=== PATIENT | male | born 1975 | race Caucasian/White ===

== ENCOUNTER 2018-05-13 16:47 | Inpatient (IN) | payer OTHER ==
[~2018-05-13] VITALS: Ht 185.4 cm; Wt 102.6 kg
[2018-05-13 17:17] LABS: ABSOLUTE BASOPHIL COUNT 0 /CUMM (0.0-0.2); ABSOLUTE EOSINOPHIL COUNT 0 /CUMM (0.0-0.7); ABSOLUTE GRANULOCYTE CT 9.4 /CUMM (1.4-6.5); ABSOLUTE LYMPH COUNT 1.5 /CUMM (1.2-3.4); ABSOLUTE MONOCYTE COUNT 0.6 /CUMM (0.10-0.60); BASOPHIL % 0.3 % (0.0-2.0); EOSINOPHIL % 0.1 % (0-5); GRANULOCYTE % 80.8 % (42.2-75.2); HEMATOCRIT 47.9 % (42-52); MEAN CORPUSCULAR HGB 30.1 PG (27.0-31.0); MEAN CORPUSCULAR HGB CONC 34.4 G/DL (33.0-37.0); MEAN CORPUSCULAR VOLUME 87.6 FL (80.0-94.0); MEAN PLATELET VOLUME 8.4 FL (7.4-10.4); PLATELET COUNT 276 /CUMM (130-400); RBC DISTRIBUTION WIDTH 13.2 % (11.5-14.5); RED BLOOD CELL CT 5.47 /CUMM (4.70-6.10); WHITE BLOOD CELL COUNT 11.6 /CUMM (4.8-10.8)
--- NOTE | 2018-05-13 18:52 | ED PSYCHIATRIC COMPLAINT ---
See Addendum History of Present Illness General Chief Complaint: Psychiatric Related Complaint Stated Complaint: +SI,HEROIN ABUSE,ETOH ABUSE Source: patient Exam Limitations: no limitations Vital Signs & Intake/Output Vital Signs & Intake/Output Vital Signs Date Time Temp Pulse Resp B/P B/P Pulse O2 O2 Flow FiO2 Mean Ox Delivery Rate 05/15 1025 81 18 133/78 97 Room Air 05/15 0613 97.3 69 20 148/100 05/15 0612 97.3 69 20 148/100 05/15 0610 97.3 69 20 148/100 05/15 0051 99.6 75 18 160/110 05/14 2243 75 18 160/110 98 Room Air 05/14 2105 99.6 70 20 160/80 97 Room Air 05/14 2030 160/80 05/14 1510 59 18 144/92 98 Room Air 05/14 1509 59 18 144/92 05/14 1311 60 18 172/102 100 Room Air 05/14 1305 60 05/14 1043 98.0 74 18 178/108 Allergies Coded Allergies: NO KNOWN ALLERGIES (09/04/12) Reconcile Medications No Known Home Medications Triage Note: TRIAGE: 43 Y/O MALE PRESENTS WITH +SUICIDALITY. DENIES HOMICIDALITY. PATIENT REPORTS USES HEROIN DAILY (SNIFFING). USES 3-4 BAGS ON A DAILY BASIS. DRINKING HEAVILY RECENTLY. LOST JOB 9 MONTHS AGO, STOPPED TAKING DEPRESSION MEDICATIONS. Triage Nurses Notes Reviewed? yes Onset: Abrupt Duration: week(s): Timing: recent history HPI: 05/13/18 8:25 PM 43-year-old male presents to the emergency department for depression with suicidal ideation. According to the patient he lost his job 8 months ago. He is been unable take his benzodiazepine and antidepressent medications. He is having suicidal ideation with severe depression. (John Bartholomew DO) Past History Travel History Traveled to [place] past 21 day Yes Medical History Any Pertinent Medical History? see below for history Neurological: NONE EENT: NONE Cardiovascular: NONE Respiratory: NONE Gastrointestinal: NONE Hepatic: NONE Renal: NONE Musculoskeletal: NONE Psychiatric: anxiety, depression Endocrine: NONE Blood Disorders: NONE Cancer(s): NONE Surgical History Surgical History: non-contributory Psychosocial History What is your primary language German Tobacco Use: Quit >30 days ago ETOH Use: alcoholic Illicit Drug Use: cocaine, heroin Family History Hx Contributory? No (John Bartholomew DO) Review of Systems Review of Systems Constitutional: Denies: fever. EENTM: Denies: visual changes. Respiratory: Denies: short of breath. Cardiovascular: Denies: chest pain. GI: Denies: abdominal pain. Genitourinary: Reports: no symptoms. Musculoskeletal: Reports: no symptoms. Skin: Reports: no symptoms. Neurological/Psychological: Reports: no symptoms. Hematologic/Endocrine: Reports: no symptoms. Immunologic/Allergic: Reports: no symptoms. (John Bartholomew DO) Physical Exam Physical Exam General Appearance: well developed/nourished, alert, awake, anxious, moderate distress Head: atraumatic Eyes: Bilateral: PERRL. Ears, Nose, Throat: normal pharynx, normal ENT inspection Neck: normal inspection, supple Respiratory: normal breath sounds, chest non-tender Cardiovascular: regular rate/rhythm Gastrointestinal: soft, non-tender Extremities: normal range of motion, evidence of injury Neurological/Psychiatric: no motor/sensory deficits, awake, agitated Appearance/Memory/Insight: appropriate appearance Behavoir/Eye Contact/Speech: avoids eye contact, cooperative Thoughts/Hallucinations: normal thought pattern SAD PERSONS SAD PERSONS Response Value Male Sex? yes 1 Age <19 or >45 years? yes 1 Depression/Hopelessness? yes 2 Previous Attempts/Psych Care yes 1 Rational Thinking Loss? yes 2 Single//? yes 1 Social Support? has no support 1 Total 9 SAD PERSONS Done? yes (John Bartholomew DO) Progress Differential Diagnosis: drug intoxication, drug overdose, drug withdrawal, DEPRESSION Plan of Care: Orders Procedure Date/time Status Admit to inpatient psych 05/15 1034 Active Continuous Observation Monitor 05/15 0139 Active Current Medications Sig/Hill Start time Last Medication Dose Stop Time Status Admin Clonidine 0.1 MG Q6 05/14 1800 AC 05/15 (Catapres) 0610 Lorazepam 1 MG Q6 05/14 1800 AC 05/15 (Ativan) 0610 Lorazepam 2 MG Q4 HRS NEEDED PRN 05/14 1215 AC (Ativan) Lorazepam 1 MG Q4 HRS NEEDED PRN 05/14 1215 AC (Ativan) Initial ED EKG: none (John Bartholomew DO) Comments: 05/14/2018 7:21:48 AM Patient signed out to Dr. Bartholomew at shift change agent after an uneventful emergency department stay overnight. 05/15/2018 10:33:43 AM patient signed out to me by Dr. Maher at shift change agent. Patient has been evaluated by the crisis condition and will be admitted to inpatient psychiatry. (Kirstie MAGAÑA,John Raymundo) Departure Departure Disposition: STILL A PATIENT Condition: Stable Clinical Impression Primary Impression: Depression Referrals: Martin Morrow MD (PCP/Family) Departure Forms: Customer Survey General Discharge Information Prescriptions: Current Visit Scripts No Known Home Medications (John Bartholomew DO) Departure Comments - - Pt to be signed out to dr. benavidez, 05/15/18, 7am, crises eval/dispo (Gunnar MAGAÑA,Chase Valadez) Departure Departure Disposition: STILL A PATIENT Condition: Stable Clinical Impression Primary Impression: Depression Referrals: Martin Morrow MD (PCP/Family) Departure Forms: Customer Survey General Discharge Information Prescriptions: Current Visit Scripts No Known Home Medications (John Bartholomew DO)
--- NOTE | 2018-05-13 21:27 | ED PSYCH CRISIS CONSULTATION ---
See Addendum Crisis Consult Basic Assessment Date of Consult: 05/13/18 Responsible Person/Accompanied By: Self Insurance Authorization: Insurance #1: Insurance name: SELF-PAY Phone number: Policy number: Group number: Authorization number: ED Provider: Patient's ED Provider: John Bartholomew DO Primary Care Physician: Patient's PCP: Martin Morrow MD PCP's Current Psychiatrist: none Chief Complaint: Psychiatric Related Complaint Patient's Quote: "If I had a gun last night, I probablywould have been ." Present Illness: Pt. is a 43 year old male presenting to the ED with "thoughts of hurting myself or taking my life" for the past two nights. Pt. reports that he has thought of a plan (a gun), but later said, he probably would not do it. Pt. denies any past suicide attempts, but reports that the thoughts are frequent. Pt. reports that he lost his job in July 2017 and with that, also lost his insurance and could no longer pay for his psychiatric medications - Prozac and Xanax. Pt. said that he also relapsed on cocaine, heroin and alcohol. Pt. reports that he has been using cocaine everyday for the last 8 months, about $100 a day. Pt. reports that he has been using heroin everyday for the last 5 months, 3 to 5 bags a day. Pt. reports that he has been using alcohol everyday for the past 8 months, a half a pint and a 6-pack a day. Pt. reports decreased sleep, appetite , energy level concentration and interest. Pt. reports that he has never had any inpatient substance abuse tx and that he had stopped using cocaine and heroin in the past on his own. Pt. also denies any psychiatric hospitalizations. Pt. reports that he has done therapy throughout his life, but last saw a therapist about two years ago. Patient's Address: [address] [place] [address] Other Phone Number: Who Do You Live With? Patient/Self Family/Informants Interviewed: n/a Allergies - Coded Allergies: NO KNOWN ALLERGIES (09/04/12) Current Medications - No Known Home Medications Laboratory Results: Laboratory Tests 05/13/189: Urine Opiates Screen > 4000.00 H, Methadone Screen < 40, Barbiturate Screen < 60, Ur Phencyclidine Scrn < 6.00, Amphetamines Screen < 100, U Benzodiazepines Scrn < 85, Urine Cocaine Screen > 1000 H, Urine Cannabis Screen > 80.00 H 05/13/18 1711: Anion Gap 11, Estimated GFR > 60, BUN/Creatinine Ratio 13.3, Glucose 104 H, Calcium 9.7, Total Bilirubin 0.6, AST 18, ALT 23, Alkaline Phosphatase 57, Total Protein 7.6, Albumin 4.6, Globulin 3.0, Albumin/Globulin Ratio 1.5, CBC w Diff NO MAN DIFF REQ, RBC 5.47, MCV 87.6, MCH 30.1, MCHC 34.4, RDW 13.2, MPV 8.4, Gran % 80.8 H, Lymphocytes % 13.2 L, Monocytes % 5.6, Eosinophils % 0.1, Basophils % 0.3, Absolute Granulocytes 9.4 H, Absolute Lymphocytes 1.5, Absolute Monocytes 0.6, Absolute Eosinophils 0, Absolute Basophils 0, Serum Alcohol < 10.0 (Bridget White LCSW) Addendum Addendum 05/14/18 Crisis Reassessment: Pt presents alert, oriented, calm and cooperative with goal directed speech. Pt continues to report SI. The pt denies HI, AH and VH. The pt stated that until he started abusing drugs he lived a good life and is now fine with dying. The pt reports he would not miss anything if he and is fine with not waking up. The pt stated he does not have access to guns. The pt reports no hope for his future due to spending his entire longterm savings of $40,000 over the past 4 months. The pt stated he was reckless and impulsive spending his entire longterm savings on "heroin, cocaine, food and sex." The pt also reports that July 2017 he lost his job of 26 years and has not worked since that time. The pt reports prior to fracturing his spine in February 2011 his only drug use was smoking marijuana. The reports back surgery in July 2011 and becoming addicted to pain medication. The pt reports he has never been prescribed Methadone or Suboxone. Addressed the plan for hospitalization and ongoing bed search due to no beds available at [facility]. The pt stated he is in agreement with this plan. (Sudeep MEDEIROS,Mathieu Ding) Past History Past Medical History Neurological: NONE EENT: NONE Cardiovascular: NONE Respiratory: NONE Gastrointestinal: NONE Hepatic: NONE Renal: NONE Musculoskeletal: NONE Psychiatric: anxiety, depression Endocrine: NONE Blood Disorders: NONE Cancer(s): NONE Past Surgical History Surgical History: non-contributory Psychosocial History Strengths/Capabilities: good family support, reports he is strong-willed Physical Limitations (Interventions): "bad back" Psychiatric Treatment History Psych Treatment Psychiatric Treatment Yes Inpatient Treatment No Outpatient Treatment Yes [facility] of [facility] Reason for Treatment depression, anxiety Dates of Treatment 2 years ago Response to Treatment therapist moved out of state Diagnosis by History: Depression, Anxiety Substance Use/Abuse History Drug Use/Abuse 1 Substances Used/Abused Yes Substance Used/Abused Alcohol First Use unk Last Used three days ago How much used/taken half pint and a six-pack How often everyday For how long last 8 months Route of use oral Drug Use/Abuse 2 Substances Used/Abused Yes Substance Used/Abused Cocaine First Use unk Last Used this morning How much used/taken $100 worth How often daily For how long 8 months Route of use inhalation Drug Use/Abuse 3 Substances Used/Abused Yes Substance Used/Abused Heroin First Use 2010 Last Used this morning How much used/taken 3 to 5 bags How often daily For how long past 5 months Route of use inhalation Substance Abuse Treatment Substance Abuse Treatment Past Substance Abuse [place] No Comments: n/a (Bridget White LCSW) Current Mental Status Mental Status Orientation: Person, Place, Situation Affect: WNL Speech: WNL Neuro-vegetative: Anhedonia, Appetite Decreased, Concentration Poor, Energy Decreased, Loss of Interest, Sleep Disturbance Appearance Appearance- Dress/Hygiene: WNL Behaviors Thought Process: WNL Thought Content: WNL Memory: WNL Insight: Fair SI/HI Risk Assessment Past Suicidal Ideation/Attempts Yes (thoughts only) Current Suicidal Ideation/Att Yes (thoughts with a plan (gun)) Past Homicidal Ideation/Att: No Current Homicidal Ideation/Attempts No Degree of Intent: Plan (gun) Danger To: Self Gravely Disabled: none Risk Factors: chronic/serious med cond., high anxiety/distress, substance abuse, poor impulse control, lives alone, male Lethality Ratin PTSD Checklist PTSD Done? patient declined ED Management Sitter: Yes Restraints: No (Bridget White LCSW) DSM5/PS Stressors/Medical Prob Diagnosis' (DSM 5, Stressors, Medical): F32.9 - Unspecified depression F41.9 - Unspecified anxiety F11.20 - Alcohol Use D/O, severe F14.20 - Cocaine Use D/O, severe F11.20 - Opioid Use D/O, severe Stressors - unemployed, no insurance, financial Medical - chronic back pain Current GAF: 24 Comments: Pt. reports current suicidal thoughts with plan. Pt. is also unemployed, off his psychiatric medications and struggling financially. (Bridget White LCSW) Departure Disposition Psych Medical Clearance Date: 05/13/18 Medically Cleared at: 2019 Time Started: 2019 Time Ended: 2104 Psychiatrist Consulted: Sylvain Amaral MD Date Disposition Established: 05/13/18 Time Disposition Established: 2104 Plan for Disposition - Modality: Bed Search Facility: [facility] Contact: n/a Telephone: n/a Rationale for Disposition: Pt. reports current suicidal thoughts and also for the past two nights, daily cocaine, heroin and alcohol use. Pt. has also been off of his psychiatric medications for the past 8 months. Pt. is at current risk of harm to himself. Type of IP Admission: Voluntary Additional Instructions: n/a Referrals Martin Morrow MD (PCP/Family) (Bridget White LCSW)
[2018-05-14 00:11] VITALS: BP 127/79
[2018-05-14 02:11] VITALS: BP 136/94
[2018-05-14 04:17] VITALS: BP 128/98
[2018-05-14 06:30] VITALS: BP 130/78
[2018-05-14 10:43] VITALS: BP 178/108
--- NOTE | 2018-05-14 12:08 | ED PSYCHIATRIST/APRN CONSULT ---
Psychiatrist/EARRINGS FABRICATOR ED Consult Assessment and Plan: Psychiatric consultation Date of consultation: 05/14/2018 and Reason for consultation: "Thoughts of hurting myself" History of present illness: The patient is a 43-year-old white male who presented to the emergency Department with "thoughts of hurting myself or taking my own life" The patient reported that his been having these thoughts for the past 2 nights. According to the shelf stocker's evaluation the patient has had thought of a plan at one point recently) shooting self with a gun), but later he recanted that and he reported that he probably would not do it. Patient denied previous suicide attempts. Patient lost his job in July 2017. He lost his insurance after that. Has been off his medications for a few months now. Has been using cocaine and heroin and alcohol daily. Past psychiatric history The patient denied any previous psychiatric hospitalizations. He reported that he has done therapy in the past. But he has not seen a therapist and to use time. Mental status examination: The patient looked uncomfortable and seems to be in withdrawal both from heroin as well as alcohol. He was lying in bed topless. He showed increased psychomotor activity and fidgetiness consistent with withdrawal from heroin and alcohol. Some muscle twitching noted, no tremors. His speech was normal, not pressured. Despite his discomfort he was polite and cooperative. He was alert and oriented to place and person and partially to time. He described his mood as "miserable ", also consistent with withdrawals. He also reported high anxiety. He denied thoughts of suicide today. He denied thoughts of violence or homicide. He was coherent without evidence of thought disorder. He denied paranoia and did not have any delusions during the interview. He denied hallucinations and did not seem to be responding to internal stimuli. All things considered, he had reasonable attention and concentration and no evidence of memory deficits. He acknowledged his addiction and the need for treatment. His judgment seems to be directly related to his sobriety. Seems to be of average intelligence. He showed good impulse control during the interview. Assessment 43-year-old white male who presented with thoughts of suicide in the context of relapsing to daily heroin cocaine and alcohol use for the past 8 months. He reported thoughts of suicide yesterday but not today. There was no evidence of psychosis. But the patient is definitely withdrawing from heroin and alcohol. Diagnostic impression: F32.9 - Unspecified depression (most likely substance-induced mood disorder with onset of symptoms during withdrawal) F41.9 - Unspecified anxiety (most likely substance induced anxiety disorder with onset of symptoms during withdrawal). F11.20 - Alcohol Use D/O, severe F14.20 - Cocaine Use D/O, severe F11.20 - Opioid Use D/O, severe Unemployment, poverty, and chronic back pain Recommendations: Ativan 2 mg times once and Ativan as needed for alcohol withdrawal symptoms and signs Clonidine 0.2 mg times once and clonidine 0.1 mg every 6 hours Ativan 1 mg every 6 hours Heroin detoxification Alcohol detoxification protocol every 2 hours Patient in need of inpatient psychiatric admission because of the thoughts of suicide
[2018-05-14 15:09] VITALS: BP 144/92
[2018-05-15 06:12] VITALS: BP 148/100
--- NOTE | 2018-05-15 09:39 | IP CRISIS DIAG ASSESS PSYCH ---
See Addendum Diagnostic Assessment Basic Assessment Insurance Authorization: Insurance #1: Insurance name: SELF-PAY Phone number: Policy number: Group number: Authorization number: Primary Care Physician: Patient's PCP: Martin Morrow MD PCP's Patient's Quote: "If I had a gun last night, I probablywould have been ." Present Illness: SW met with the patient for the morning reassessment. The patient presents with depressed mood and flat affect. He rates his depression a 4 out of 10 and anxiety a 7 out of 10, 10 being the most severe. The patient states that he has been feeling helpless and hopeless, with decreased sleep, appetite, concentration and motivation. He reports that he has been feeling depressed since about 8 months ago, when he lost his job. He states that he relapsed on Cocaine the day he lost his job, after 7 years clean. In addition to using Cocaine, he has been using Heroin. He states that he worked in [employer] for a [employer] for 26 years and he believed that he was wrongfully terminated after new management came in. He states that he never had any mental health symptoms before and that he has never had any treatment. He reports that his suicidal ideations began 10-12 days ago and states that if he had a gun, he would have killed himself. He denies any suicidal ideations while in the ED, however does not believe that he can remain safe, if he is discharged. He states that he spent 30,000-35,000 of his savings over the last couple of months and now does not have money to take care of his bills. He states that it all became overwhelming and he is not sure how he will manage it. He states the has limited supports, however does have someone he has been seeing that is supportive. He states that he does not have any insurance and is feeling bad about needing to get help from the state, after working his whole life. He is in agreement with the plan for an inpatient hospitalization. Patient's Address: [address] [place] [id number] Other Phone Number: Who Do You Live With? Patient/Self Feel Safe Where You Live? Yes Feel Safe in Your Relationship Yes Marital Status: single Do You Have Children? No Primary Language? Trinidadian Family/Informants Interviewed: SW spoke to his sister, Kelley to inform her about the treatment plan. She did not leave her number, however the patient will call her, when he is admitted. Allergies - Coded Allergies: NO KNOWN ALLERGIES (09/04/12) Current Medications - No Known Home Medications Consequences of Psych Med Use: N/A Comment: N/A Toxicology Screen Completed? Yes Results: positive (Cannabis, Cocaine, Heroin) Symptoms of Use: N/A Past History Past Medical History Medical History: Fracture L3 in 2010 Past Surgical History Surgical History BACK SURGERY (2010) Abuse/Trauma History Trauma History/Current Trauma: None noted Abuse/Trauma Treatment: N/A Legal History Current Legal Status: none Have you ever been arrested? Yes Number of Arrests: [address] Dates: N/A Client Success Director N/A Psychosocial History Strengths/Capabilities: He has good insight into his need for treatment and is motivated to attend. Physical Limitations (Interventions): He states that he has a L3 fracture in 2010. Psychiatric Treatment History Psych Treatment Psychiatric Treatment Yes Inpatient Treatment No Outpatient Treatment Yes Location of [facility] Reason for Treatment depression, anxiety Dates of Treatment 2 years ago Response to Treatment therapist moved out of state Diagnosis by History: Depression, Anxiety Risk Factors: chronic/serious med cond., high anxiety/distress, substance abuse, poor impulse control, lives alone, male Substance Use/Abuse History Drug Use/Abuse minimum 12mo Hx 1 Substances Used/Abused Yes Substance Used/Abused Heroin First Use 2010 Last Used this morning How much used/taken 3 to 5 bags How often daily For how long past 5 months Route of use inhalation Drug Use/Abuse minimum 12mo Hx 2 Substances Used/Abused Yes Substance Used/Abused Alcohol First Use Unknown Last Used "4 days ago." How much used/taken "half pint and a six pack" How often Daily For how long 8 months Route of use oral Drug Use/Abuse minimum 12mo Hx 3 Substances Used/Abused Yes Substance Used/Abused Crack Cocaine First Use Unknown Last Used 05/13/2018 How much used/taken "$100" How often Daily For how long 8 months Substance Abuse Treatment Substance Abuse Treatment Past Substance Abuse [place] No (Pt. denies) Inpatient Treatment No Outpatient Treatment No Location of Treatment N/A Reason for Treatment N/A Dates of Treatment N/A Response to Treatment N/A Comments: N/A Sexual History Sexual Concerns: None noted Education History Highest Level of Education: high school/GED Preferred Learning Style: Unknown Current Mental Status Mental Status Orientation: Person, Place, Situation Affect: WNL Speech: WNL Neuro-vegetative: Anhedonia, Appetite Decreased, Concentration Poor, Energy Decreased, Helpless, Loss of Interest, Sleep Disturbance Appearance Appearance- Dress/Hygiene: WNL Behaviors Thought Process: WNL Thought Content: WNL Memory: WNL Insight: WNL SI/HI Risk Assessment - Minimum 6mo History- Past Suicidal Ideation/Attempts Yes (thoughts only) Current Suicidal Ideation/Att Yes (thoughts with a plan (gun)) Past Homicidal Ideation/Att: No Current Homicidal Ideation/Attempts No Degree of Intent: Plan (gun), The patient states that he has been feeling overwhelmed and has been thinking about suicide for 10-12 days. He states that he is safe in the ED, however he does not feel that he would be safe if he is discharged home. Danger To: Self Gravely Disabled: N/A Risk Factors: chronic/serious med cond., high anxiety/distress, substance abuse, poor impulse control, lives alone, male Lethality Ratin Needs/Init [place] Plan/Goals: Admit to the inpatient unit for safety and symptom stability. Attend group, family and individual sessions. Work with the provider on medication management. Work with the treatment team on transition to care in the community. AUDIT-C Questionnaire: AUDIT-C Questionnaire: Response Value ETOH use in the past year 4 or more per week 4 # drinks typical/day 10 or more 4 6 or > drinks per occasion Daily/Almost Daily 4 Total 12 DSM5/PS Stressors/Medical Prob Diagnosis' (DSM 5, Stressors, Medical): F32.9 - Unspecified Depressive Disorder F11.20 - Alcohol Use Disorder, severe F14.20 - Stimulant Use Disorder, Cocaine type F11.20 - Opioid Use Disorder, severe Medical: L3 Fracture Stressors: unemployed, no insurance, financial Current GAF: 24 Comments: N/A
[2018-05-15 10:00] VITALS: BP 133/78
[2018-05-15 12:01] VITALS: BP 141/83
[2018-05-15 14:01] VITALS: BP 138/79
[2018-05-15 19:15] VITALS: BP 128/82
[2018-05-15 21:29] VITALS: BP 140/80
[2018-05-16] VITALS (10 sets, daily range): BP systolic 103–158; BP diastolic 62–98
--- NOTE | 2018-05-16 13:23 | CPS PROVIDER INIT ASMT PSYCH ---
Psychiatric Admission Broth Setter's Note Reviewed: Yes Patient Seen and Examined: Yes Identifying Information: 43-year-old male with multiple tattoos Chief Complaint: "I have been going through a lot of money doing lots of drugs and alcohol and I have had enough" Reaction to Hospitalization: Admitted on a voluntary basis History of Present Illness Onset of Illness: 8 months ago when he lost his job Circumstances Leading to Admission: Significant financial difficulties due to excess drug and alcohol use Problem(s) Justifying Need for Admission: The patient is depressed and suicidal Other HPI: The patient worked for 26 years in a job for which he was dismissed 7 or 8 months ago. He says he was dismissed on very because management did not like him. He was fired for taking half a day when he had no peak time left. The patient did receive unemployment but has spent all that money and does not be able to find other employment. The patient reports that he has been using about $150 worth of cocaine a day. He has been drinking a sixpack and a half a pint of alcohol daily. He has no history of seizures or delirium tremens. He does not experience withdrawal symptoms. He has a history of blackouts. He has not been waking at night to drink. He reports that his substance use has not affected work but has affected his relationships. He is used a small amount of marijuana daily for a long time. The patient has a history of opiate use since he was prescribed them following back surgery in 2010. He is used both pain pills and heroin. He had detox himself but relapsed on heroin recently. He does not use intravenously. The patient describes his mood as "lousy". He reports loss of interest in his usual activities, isolating from others, reduced sleep, normal appetite, reduced energy and concentration. There is some diurnal variation in mood with the mornings being best. He is anhedonic. He is not keeping up with his ADLs or with his apartment. He has had thoughts of wanting to particularly by shooting himself. He does not have a gun or have access to a gun. Past Psychiatric History Past Diagnosis(es)- if any: Anxiety and depression Past Precipitating Factors- if any: "Life" - Include inpatient and outpatient treatment Treatment History: The patient was prescribed fluoxetine and alprazolam for many years and did well on them. He has not been treatment for some time. He has never been hospitalized psychiatrically. 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 - #1 Recognizing dangerous situations. - #2 Coping Skills. - #3 Basic information about quitting. Status of Tobacco Cessation Counseling: Not Applicable Cessation Med Status Not Applicable Alcohol Screening - ETOH screen POS if BAL >=80 or Audit-C>= M4/F3 Audit-C Score from Diag Assess: 12 Blood Alcohol Level: Laboratory Tests 05/13 1711 Toxicology Serum Alcohol (<10 MG/DL) < 10.0 Alcohol Use Screening Results: Pos per Audit C &/or BAL - If ETOH counseling indicated - the following topics are required. - #1 Express concern about the patient's - drinking at unhealthy levels, include informing - of national norms for moderate drinking: - men <= 14 drinks/week, max 4 drinks/occasion - women <= 7 drinks/week, max 3 drinks/occasion - #2 Providing feedback, including linking alcohol to - negative physical effects (liver injury, hypertension) - negative emotional effects (relationship problems and - depression) - negative occupational consequences (reduced work - performance) - #3 Advising the patient to abstain from alcohol or - to drink below national norms for moderate drinking - (as listed above). Status of ETOH Use Counseling: #1, #2 AND #3 Completed. Metabolic Screening - Screen if on a Neuroleptic Medication - Metabolic screening should include: - Blood Pressure, BMI, Glucose or Hgb A1c, & a - Lipid profile from within the past 365 days. Metabolic Screening () Not Applicable, patient not on a neuroleptic. OR () Patient on a neuroleptic(s) . Enter below results for Hemoglobin A1C, and lipid panel if obtained during the last 365 days. BMI: 29.800 Blood Pressure: 103/71 Laboratory Results From [facility] (If applicable): Exam and Plan Mental Status Examination Ambulation Status: Gait steady Appearance: Multiple tattoos, dressed in hospital attire. Several red lesions on his arms from "picking at my skin when I am taking cocaine" Attitude towards examiner: Pleasant, cooperative Psychomotor activity: Normal Behavior: Appropriate Quality of speech: Normal in rate, rhythm, volume and tone Affect: Sad, anxious Mood: Depressed and anxious Suicidal Ideation: Yes but no intent Homicidal Ideation: No Hallucinations: No perceptual abnormality Paranoid/Delusional Material: Thought content free of delusions or obsessions Difficulties with thought organization: Thought content free of delusions or obsessions Insight: Good Judgment: unimpaired Orientation: Alert and oriented 3 Cognition: Grossly intact Memory Function: Normal Estimate of intellectual functioning: Average Assets/Strengths Patient Identified Assets/Strengths: Sisters are supportive, good work ethic, quit heroin "cold turkey" and was clean for over 3 years Impression/Plan Impression and Plan: 43-year-old male with major depressive disorder and anxiety in the context of drug and alcohol dependence. Symptoms of exacerbated with increased substance use since he lost his job of 26 years 8 months ago. Neurovegetative symptom profile consistent with major depression. Has been treated for depression and anxiety in the past but never hospitalized. The patient reports intermittent mood lability but does not meet criteria for bipolar disorder. The patient has a history of childhood trauma and presents with issues relevant to being the adult child of an alcoholic. - Include all active medical diagnosis that require tx DSM 5 Diagnosis(es): Major depressive disorder recurrent severe Rule out substance-induced mood disorder Alcohol use disorder severe dependence Stimulant [cocaine] use disorder severe dependence Opiate use disorder severe dependence - Initial Tx Plan for Active Psych & Medical Conditions Treatment Plan: The patient has been admitted on a voluntary basis and placed on 15 minute checks for safety. Alcohol withdrawal symptoms will be measured using C was scales and medication prescribed accordingly. Supplements with multivitamins and folate have been ordered. Opiate withdrawal symptoms will be measured usingCOWS scale and again medication adjusted as warranted. Patient has done well on an SSRI in the past. However given his anxiety profile he would not be prescribed fluoxetine but S citalopram at a dose of 5 and then 10 mg p.o. daily. His QTC is 475. Hydroxyzine will be ordered for anxiety on an as-needed basis. Possibility of taking medication to help with relapse prevention will be discussed with the patient. He will be strongly encouraged to attend an intensive outpatient program on discharge. - Factors that would help patient function - in a less restrictive setting. Factors: Adequate treatment of depression and anxiety with no active suicidal intent.
--- NOTE | 2018-05-16 13:27 | History & Physical ---
General Information and HPI History of Present Illness: This young male was admitted for the first time to [facility] for increasing depression and polysubstance drug abuse. He reports that he has been seeing some outpatient therapists but his depression was getting worse and he has been doing a lot of drugs and drinking alcohol for last 8 months since he was fired from his job. Now he was getting more depressed and therefore came to the hospital for further help and treatment. He admits to using intravenous heroin and cocaine as well as marijuana and drinks at least 6 packs of beer as well as half a pint of liquor with. From physical standpoint he only complains of back pain that he has had for about 7 years since he had fracture vertebra and surgery. He claims he was given pain medicine for about a year or so after that and since then he is not taking any other pain medications. He claims his mother is an alcoholic as well as his sister is an alcoholic and his father used to be an alcoholic before he in mid 50s from heart attack. The patient claims that he smoked cigarettes for about 5 years and then stopped many years ago. 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 Home ETOH Use: alcoholic Illicit Drug Use: cocaine, heroin Review of Systems Review of Systems Constitutional: Denies: no symptoms, chills, fever, unexplained weight loss. EENTM: Denies: no symptoms. Cardiovascular: Denies: no symptoms. Respiratory: Denies: no symptoms. GI: Denies: no symptoms. Genitourinary: Denies: no symptoms. Musculoskeletal: Reports: see HPI, back pain. Neurological/Psychological: Reports: see HPI, depressed, emotional problems. Hematologic/Endocrine: Denies: no symptoms. Exam & Diagnostic Data Last 24 Hrs of Vital Signs/I&O Vital Signs Date Time Temp Pulse Resp B/P B/P Pulse O2 O2 Flow FiO2 Mean Ox Delivery Rate 05/16 1225 66 103/71 05/16 1134 69 137/90 05/16 0953 80 119/62 05/16 0743 98.8 91 114/83 05/16 0736 98.8 91 114/83 05/16 0607 72 158/91 05/16 0542 98.8 72 158/91 05/16 0255 99.2 66 119/89 05/16 0047 58 110/70 05/16 0046 58 110/70 05/15 2129 98.2 80 140/80 05/15 2025 66 128/82 05/15 1918 98.3 66 18 128/82 96 Room Air 05/15 1915 98.3 66 16 128/82 05/15 1808 98.8 73 18 128/82 98 05/15 1656 97.8 72 17 112/84 05/15 1401 97.8 79 18 138/79 05/15 1401 97.8 79 18 138/79 99 Room Air Intake & Output 05/16 1600 05/16 0800 05/16 0000 Intake Total Output Total Balance Patient 226 lb Weight Physical Exam General Appearance Alert, Oriented X3, Cooperative, No Acute Distress Skin No Rashes, scratch mckinley on the forearms especially on the right side. HEENT Atraumatic, PERRLA, EOMI, Mucous Membr. moist/pink Neck Supple, No JVD, No thryomegaly, +2 Carotid Pulse wo Bruit Lymphatic Cervical nl Cardiovascular Regular Rate, Normal S1, Normal S2, No Murmurs, Gallops, Rubs Lungs Clear to Auscultation, Normal Air Movement Abdomen Soft, No Tenderness, No Hepatospenomegaly, No Masses Neurological Exam Findings: Normal Gait, Normal Speech, Strength at 5/5 X4 Ext, Normal Tone, Cranial Nerves 3-12 NL, Reflexes 2+ Cranial Nerves II through XII: Within normal limits. Extremities No Clubbing, No Cyanosis, No Edema, No Tenderness/Swelling Assessment/Plan Assessment: This young male was admitted for increasing depression as well as polysubstance drug abuse requesting help. He is using cocaine as well as heroin and marijuana in addition to drinking the thickened amount of alcohol. From medical standpoint he's fairly stable without any acute medical problems at this time. His admission lab work shows minimally elevated white count at 11.6 but his hemoglobin and hematocrit is normal and his electrolytes as well as liver functions are all normal. His alcohol level on admission was less than 10 and his urine toxicology is positive for opiates as well as cocaine and cannabis. For now he does not require any specific workup or treatment from medical standpoint and he is already on thiamine and folate per protocol and does not need any other medicine. As Ranked By This Provider Problem List: 1. Nausea & vomiting 2. Depression Miscellaneous Miscellaneous Documentation Attending Case Discussed With: Patricia Knox MD Primary Care Physician: Martin Morrow MD Patient sees these Specialists none Level of Patient Care: RUSSELL Vega Attending MD Review Statement Attending Statement Attending MD Statement: examined this patient, reviewed EMR data (avail), discussed with nursing Attending Assessment/Plan: This young male is admitted for increasing depression as well as polysubstance drug abuse including heroin and cocaine marijuana as well as alcohol abuse. From medical standpoint he's fairly stable on physical exam and his admission labs are reasonably stable. He does not require any specific workup or treatment from medical standpoint at this time except treating his chronic back pain with some Tylenol or Motrin on a when necessary basis.
--- NOTE | 2018-05-16 15:28 | SOCIAL WORKER PROG NOTE PSYCH ---
Social Work Progress Note Progress Note John's first question to me was if he could sign himself out tonight? I explained that the process doesn't work like that and that it would be a team's decision to discharge. Offered him a 3 day paper, but he didn't feel that was necessary. He stated he feels much better and doesn't know what else could be offered to him here. This is his first time in inpatient tx. He has had individual therapists in the past. Has a long hx of substance use. Currently using cocaine and heroin. He reports he lost his job of 26 years in July. Got fired. He doesn't agree for the reasons he was fired. Stated he took a 1/2 of a sick day when he didn't have any time to use. He stated he gets depressed due to his current financial stress and the lack of support he feels he has. Reports having friends, but they also use. He is getting more upset with his friends with their lack of engagement. He reports he hasn't spoken with his family since he lost his job. He reports that they are upset with his current drug use. He feels embarrassed and ashamed to reach out to them. Stated that he had thoughts about driving car into something as a suicide plan or suicide by copper miner, but stated he would never hurt himself. Stated he would never do that to his family. Stated he loved them too much. Other than current depression reports his symptoms also include lack of sleep at times. Denies that this has been due to cocaine use. Stated he has had problems with sleep all of his life. Has a sense of humor and using that frequently thoughout interview. May be hypersexual as he stated he ejaculates during sleep without masturbating. I didn't comment on this topic with him. Shared information about IOP and stated that Zulma would be helping him apply for insurance tomorrow.
--- NOTE | 2018-05-16 20:55 | SOCIAL WORKER PROG NOTE PSYCH ---
Social Work Progress Note Progress Note Pt was feeling ill this evening, he was medicated for withdrawl like symptoms therefore, unable to participate in psychosocial evaluation.
[2018-05-17] VITALS (15 sets, daily range): BP systolic 139–169; BP diastolic 79–104
--- NOTE | 2018-05-17 14:57 | CP SOUTH PROGRESS NOTE PSYCH ---
Psych (Inpt) Progress Note Progress Note Include the following elements, when applicable: Involvement in the active treatment of the patient with behavioral observations of the patient and the patient's response to the treatment. Review of the ongoing treatment process in the context of the treatment plan. Indication of how multi-disciplinary staff members are carrying out the treatment plan. Plans for future interventions and recommendations for revision of the treatment plan. Liaison with other physicians/providers. Progress Note: Patient was discussed at team meeting. "I am good" On prompting the patient becomes tearful, reports that he is ashamed, depressed and anxious. He denies being suicidal. He had an episode of delirium last evening. He was medication following that he slept well. His appetite is poor. He has some hope for his future stating "it has to get better". He is overwhelmed by psychosocial stressors including being unemployed and homeless. He is not experiencing any symptoms of opiate withdrawal Mental status examination: Alert and oriented 3, gait steady. Eye contact good. Speech normal in rate, rhythm, volume and tone. Mood "good". Affect initially superficial but easily tearful and overall depressed. Not suicidal or homicidal. Thought process normal in tempo, stream and form with no delusions or obsessions. Attention and concentration fair. No perceptual abnormality. Impulse control good. Recent and remote memory intact. Intelligence level average, fund of knowledge average, use of language appropriate. Insight fair, judgment unimpaired. Medications: S-Citalopram 10 mg p.o. daily Hydroxyzine 50 mg p.o. as needed for anxiety Multivitamin 1 p.o. daily Thiamine 100 mg p.o. daily Folic acid 1 mg p.o. daily Assessment: 43-year-old male with depression, alcohol withdrawal, bordering on delirium tremens as per hallucinations last night with elevated temperature. Limited insight. Diagnosis: Major depressive disorder recurrent severe Rule out substance-induced mood disorder Alcohol use disorder severe dependence Stimulant [cocaine] use disorder severe dependence Opiate use disorder severe dependence Delirium tremens Treatment plan: Start lorazepam detox protocol Discontinue standing clonidine as patient is not having any opiate withdrawal symptoms Continue individual and group psychotherapy The patient has been given information on [facility] The patient was encouraged to call his landlord today and ascertain his housing situation Referral to [facility] on discharge
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
--- NOTE | 2018-05-17 17:32 | SOCIAL WORKER PROG NOTE PSYCH ---
Social Work Progress Note Progress Note John is experiencing withdrawal symptoms today. Feels chilled and tired. Didn't feel that he was well enough to participate in groups today. Informed Orlin that his Mother called me and left a message. He got tearful and asked what she wanted. Explained that she was looking for an update. He was agreeable to signing a release, but not having a family meeting at this point. He said his Mom and Sister visited him yesterday. Orlin shared that he was glad he wasn't discharged yesterday and that he is glad he is here and knows he needs to be here. He was much more emotional today, crying throughout our conversation. I continue to talk with him about the benefits of IOP and that being a good support as well as AA. He is worried about transportation to an IOP if he doesn't have a car and he lives in [place] close to a main road. He may be eligible for [facility] once he is active in the [employer] system. He was approved for insurance today. It is retroactive 3 months (application number [id number] [employer].) John is feeling at a loss right now due to not knowing about having his car, he probably lost his insurance, and he has spent all of his money. Talked about there being difficult times he will be heading through and it's not easy doing it alone. He feels that he needs to do this on his own. I told him that really isn't possible. Called Tiffanie Dajuan (Mother) [phone]. Shared how Orlin was doing and what the recommendation is going forward. Shared that Orlin was not open to a family meeting, but agreeable to have me share information at this time. Mom reports that there is no major mental illness in the family, but lots of alcohol problems.
[2018-05-18] VITALS (9 sets, daily range): BP systolic 124–164; BP diastolic 82–112
--- NOTE | 2018-05-18 11:10 | SOCIAL WORKER PROG NOTE PSYCH ---
Social Work Progress Note Progress Note MARLEY MCKEON [id number] 1975 MARLEY MCKEON [id number] Pended Authorization # Client Authorization # Type of Request [id number] CONCURRENT Date of Admission/ Start of Services Requested From Submission Date 05/15/2018 05/18/2018 05/18/2018
[2018-05-18 12:29] LABS: ABSOLUTE BASOPHIL COUNT 0 /CUMM (0.0-0.2); ABSOLUTE EOSINOPHIL COUNT 0 /CUMM (0.0-0.7); ABSOLUTE GRANULOCYTE CT 7.1 /CUMM (1.4-6.5); ABSOLUTE LYMPH COUNT 1.9 /CUMM (1.2-3.4); ABSOLUTE MONOCYTE COUNT 0.9 /CUMM (0.10-0.60); BASOPHIL % 0.4 % (0.0-2.0); EOSINOPHIL % 0.2 % (0-5); GRANULOCYTE % 71.6 % (42.2-75.2); HEMATOCRIT 48.6 % (42-52); MEAN CORPUSCULAR HGB 29.8 PG (27.0-31.0); MEAN CORPUSCULAR HGB CONC 33.7 G/DL (33.0-37.0); MEAN CORPUSCULAR VOLUME 88.4 FL (80.0-94.0); MEAN PLATELET VOLUME 8.6 FL (7.4-10.4); PLATELET COUNT 288 /CUMM (130-400); RBC DISTRIBUTION WIDTH 13.1 % (11.5-14.5)
--- NOTE | 2018-05-18 13:53 | CP SOUTH PROGRESS NOTE PSYCH ---
Psych (Inpt) Progress Note Progress Note Include the following elements, when applicable: Involvement in the active treatment of the patient with behavioral observations of the patient and the patient's response to the treatment. Review of the ongoing treatment process in the context of the treatment plan. Indication of how multi-disciplinary staff members are carrying out the treatment plan. Plans for future interventions and recommendations for revision of the treatment plan. Liaison with other physicians/providers. Progress Note: "I feel pretty good" The patient reports that he feels "much better than the day I came in". He feels "I just need to go back to work, no one else can fix this for me". He reports fair sleep and normal appetite. He is not experiencing any withdrawal symptoms from opiates. He becomes tearful easily and is very ashamed of his emotions. Mental status examination: Alert and oriented 3, gait steady. Eye contact good. Speech is normal in rate, rhythm, volume and tone. He describes his mood is good. His affect is superficially bright but he is depressed, tearful and anxious. He is not suicidal or homicidal. Thought process is normal in tempo, stream and form with no delusions or obsessions. Attention and concentration are good. There is no perceptual abnormality. Impulse control is good. Recent and remote memory are intact. Intelligence level is average, fund of knowledge average, use of language appropriate. The patient's insight is fair, judgment unimpaired. Medications: S-Citalopram 10 mg p.o. daily Hydroxyzine 50 mg p.o. as needed for anxiety [using intermittently only] Multivitamin 1 p.o. daily Thiamine 100 mg p.o. daily Folic acid 1 mg p.o. daily Lorazepam 1.5 mg p.o. 4 times daily Of note the patient again spiked a temperature last night. His blood pressure is fluctuating. CBC ordered. May need to be seen by herb doctor. Assessment: The patient remains depressed, easily tearful and overwhelmed. Distress tolerance is poor. He has limited coping skills. His insight is poor. He remains ashamed of his emotions which make him feel vulnerable. He is making some progress and that he has started to verbalize a little in groups. The patient needs education around his illness as well as basic coping skills. His family is supportive. The patient is tolerating alcohol detox well. CIWA scores are low. There are no symptoms of opiate withdrawal. Diagnosis: Major depressive disorder recurrent severe Alcohol use disorder severe dependence Stimulant [cocaine] use disorder severe dependence Opiate use disorder severe dependence Delirium tremens Reason for ongoing admission: The patient was suicidal prior to admission. He remains depressed with little insight. Distress tolerance is poor and psychosocial stressors are severe. He is at risk of suicide if discharged prematurely. Treatment plan: -Continue lorazepam detox protocol -Continue Lexapro -Monitor hydroxyzine use as lorazepam was discontinued. He may need this medication on a standing basis -Continue individual and group psychotherapy. The patient needs education around his illness as well as basic coping skills -Family meeting offered. -Tentative discharge date May 23. Follow-up as intensive outpatient program.
--- NOTE | 2018-05-18 15:40 | SOCIAL WORKER PROG NOTE PSYCH ---
See Addendum Social Work Progress Note Progress Note Met with John this afternoon. He is a little more active on the unit today, attending some groups. I told him that I spoke with his Mother last night. He said he visited with Mom and Sisters last evening. Asked how the visit went? He said it went well. He was very focused on discharge discussion, asking when he may be able to leave at this point. I told him that we tentatively talked about discharge in our team meeting for Tuesday. He got frustrated and stated he feels he doesn't need to be here for 5 more days. He expressed his desire to leave and start making money so he doesn't lose everything. Stating today that he has to get started with [employer]. Reports today that he does have his car, but he is behind on payments. I shared that he got [facility] activated as of today and he has an ID# ([id number]). Told him he would be eligible for [facility] to get medical transportation if needed. He did ask about IOP and what goes on. He said he was considering it. I told him some general information. He looked slightly tearful about staying longer and apologized for his "grumpiness." I told him that he hasn't been feeling that well and hasn't participated in much up until today and told him to think of making his recovery a priority. Told him we will discuss it more tomorrow.
[2018-05-19 02:08] VITALS: BP 143/100
[2018-05-19 04:28] VITALS: BP 143/101
[2018-05-19 07:54] VITALS: BP 140/100
[2018-05-19 08:12] VITALS: BP 140/100
--- NOTE | 2018-05-19 10:55 | Patient Discharge Instructions ---
Psych Discharge Inst General Discharge Information Reason for Admission: major depression, alcohol dependence, cocaine dependence Psy Discharge Primary Diag+ Depression, Alcohol Dependence, cocaine dependence Psy Discharge Secondary Diag+ Alcohol Dependence, cocaine dependence Summary Tests/Major Procedures Lab 25-OH Vitamin D Total 11.0 ng/ml L 05/16/18 0637 ALT 23 U/L 05/13/18 1711 AST 18 U/L 05/13/18 1711 Albumin 4.6 g/dL 05/13/18 1711 Albumin/Globulin Ratio 1.5 % 05/13/18 1711 Alkaline Phosphatase 57 U/L 05/13/18 1711 Anion Gap 11 05/13/18 1711 BUN 12 mg/dL 05/13/18 1711 BUN/Creatinine Ratio 13.3 % 05/13/18 1711 Calcium 9.7 mg/dL 05/13/18 1711 Carbon Dioxide 19 mmol/L L 05/13/18 1711 Chloride 106 mmol/L 05/13/18 1711 Creatinine 0.9 mg/dL 05/13/18 1711 Estimated GFR > 60 ml/min 05/13/18 1711 Folate 16.0 ng/mL 05/16/18 0637 Globulin 3.0 gm/dL 05/13/18 1711 Glucose 104 mg/dL H 05/13/18 1711 Potassium 4.1 mmol/L 05/13/18 1711 Sodium 136 mmol/L L 05/13/18 1711 TSH &T3 &Free T4 Intrp 2.070 uIU/mL 05/16/18 0637 Total Bilirubin 0.6 mg/dL 05/13/18 1711 Total Protein 7.6 g/dL 05/13/18 1711 Vitamin B12 311 pg/mL 05/16/18 0637 Hct 47.9 % 05/13/18 1711 Hgb 16.5 G/DL 05/13/18 1711 MCH 30.1 PG 05/13/18 1711 MCHC 34.4 G/DL 05/13/18 1711 MCV 87.6 FL 05/13/18 1711 MPV 8.4 FL 05/13/18 1711 Plt Count 276 /CUMM 05/13/18 1711 RBC 5.47 /CUMM 05/13/18 1711 RDW 13.2 % 05/13/18 1711 WBC 11.6 /CUMM H 05/13/18 1711 Urine Cannabis Screen > 80.00 NG/ML H 05/13/18 1939 Urine Cocaine Screen > 1000 NG/ML H 05/13/18 1939 Urine Opiates Screen > 4000.00 NG/ML H 05/13/18 1939 Studies Pending at DC: none Patient Instructions Contact Information Your Psychiatrist on [facility] was Lisette MAGAÑA,Patricia * If you are experiencing an emergency related to this hospitalization, please call [phone] to contact the treating psychiatrist or the psychiatrist-on- call. * To Request a copy of your medical records, please contact the Medical Records Department at [phone]. * To request results of studies pending at the time of discharge, please call [phone]. * Continue your Medications until directed to stop by your Healthcare provider. General Medication Information Please continue to take your new medications and your continued home medications , unless otherwise indicated on your discharge medication list, or unless directed by your MD or BOX SEALING INSPECTOR to stop them. Special Instructions Diet Regular Activity As Tolerated - Tobacco Use Treatment Offered Post DC Medications Offered: Not Applicable Post DC Tobacco Treatment Plan: Not Applicable - EtOH/Drug Use D/O Treatment Offered Post DC Medications Offered: Ref Med EtOH/Drug Use D/O Post DC EtOH/SubAbuse TX Plan: [facility] SubAbuse/Dual IOP Metabolic Screening () Not Applicable, patient not on a neuroleptic. OR () Patient on a neuroleptic(s) . Enter below results for Hemoglobin A1C, and lipid panel if obtained during the last 365 days. BMI: 29.800 Blood Pressure: 140/100 Laboratory Results From [facility] EHR (If applicable): Advance Directives Does the Patient have Medical Advance Directives No/Refused further info Does Pt have Psychiatric Advance Directives? No/Refused further info Does Patient have a Designated Surrogate Decision Maker: No Information About Psychiatric Advance Directives Provided? Refused Discharge Plan Post Hospital Treatment Plan: Discharged home woth referral to [facility] 05/23
[2018-05-19] MEDS ORDERED: VITAMIN B-1100 MG PO (11:01)
[2018-05-19] MEDS ORDERED: HYDROXYZINE HCL50 M1 PO (11:01)
[2018-05-19] MEDS ORDERED: ATENOLOL25 M1 PO (11:01)
[2018-05-19] MEDS ORDERED: LORAZEPAM0.5 M1 PO (11:01)
[2018-05-19] MEDS ORDERED: LEXAPRO10 M1 PO (11:01)
[2018-05-19] MEDS ORDERED: FOLIC ACID1 M1 PO (11:01)
[2018-05-19 11:35] VITALS: BP 130/70
--- NOTE | 2018-05-19 11:41 | SOCIAL WORKER PROG NOTE PSYCH ---
Social Work Progress Note Progress Note Orlin was up in group this morning. Dr. Knox and I spoke with Orlin together to discuss discharge readiness. He was emotional talking about his experience in coming here and working on things, because he hasn't done this before. He is focused though, on leaving to get started with [employer]. Dr. Knox discussed his expectations regarding this job and the money he may or may not earn. He said he only wants to use it as a stepping stone. We talked about the structure for his weekend and what that would look like. He mentioned his family and that he would most likely be seeing them when he leaves here today. He is also planning to go to AA meetings with his Sister, but doesn't have the details discussed yet. He mentioned some improvement he feels since being here, such as showering and feeling physically better than he has felt in months. Feels somewhat anxious today. Stated he didn't sleep that well, due to his roommate making alot of noise. Talked about the importance of following through with IOP and that he needs the structure and support right now. Orlin has his car and will leave by lunch time today. Intake is scheduled for Tuesday at 1:15. There were no intakes available today when checked.
--- NOTE | 2018-05-19 14:36 | SOCIAL WORKER PROG NOTE PSYCH ---
Social Work Progress Note Faxed Referral(s) Referred To: [facility] Transition of Care Documents sent: Health Summary Faxed to: [facility] Fax #: [phone] Faxed by: Barbara Peter Date faxed: 05/19/18 Time Faxed: [phone]
--- NOTE | 2018-05-19 15:37 | DISCHARGE SUMMARY REPORT-PSYCH ---
Visit Information Visit Dates/Diagnosis' Admission Date: 05/15/18 Discharge Date: 05/19/18 Reason for Admission: major depression, alcohol dependence, cocaine dependence Psy Discharge Primary Diag: Depression, Alcohol Dependence, cocaine dependence Psy Discharge Secondary Diag: Alcohol Dependence, cocaine dependence Hospital Course Significant Lab Findings: Lab 25-OH Vitamin D Total 11.0 ng/ml L 05/16/18 0637 ALT 23 U/L 05/13/18 1711 AST 18 U/L 05/13/18 1711 Albumin 4.6 g/dL 05/13/18 1711 Albumin/Globulin Ratio 1.5 % 05/13/18 1711 Alkaline Phosphatase 57 U/L 05/13/18 1711 Anion Gap 11 05/13/18 1711 BUN 12 mg/dL 05/13/18 1711 Calcium 9.7 mg/dL 05/13/18 1711 Carbon Dioxide 19 mmol/L L 05/13/18 1711 Chloride 106 mmol/L 05/13/18 1711 Creatinine 0.9 mg/dL 05/13/18 1711 Estimated GFR > 60 ml/min 05/13/18 1711 Folate 16.0 ng/mL 05/16/18 0637 Globulin 3.0 gm/dL 05/13/18 1711 Glucose 104 mg/dL H 05/13/18 1711 Magnesium 2.3 mg/dL 05/16/18 0637 Phosphorus 3.6 mg/dL 05/16/18 0637 Potassium 4.1 mmol/L 05/13/18 1711 Sodium 136 mmol/L L 05/13/18 1711 TSH &T3 &Free T4 Intrp 2.070 uIU/mL 05/16/18 0637 Total Bilirubin 0.6 mg/dL 05/13/18 1711 Total Protein 7.6 g/dL 05/13/18 1711 Hct 48.6 % 05/18/18 1200 Hgb 16.4 G/DL 05/18/18 1200 MCH 29.8 PG 05/18/18 1200 MCHC 33.7 G/DL 05/18/18 1200 MCV 88.4 FL 05/18/18 1200 Plt Count 288 /CUMM 05/18/18 1200 RBC 5.50 /CUMM 05/18/18 1200 RDW 13.1 % 05/18/18 1200 WBC 10.0 /CUMM 05/18/18 1200 Urine Cannabis Screen > 80.00 NG/ML H 05/13/181938 Urine Cocaine Screen > 1000 NG/ML H 05/13/181938 Urine Opiates Screen > 4000.00 NG/ML H 05/13/181938 Course Complications: none Consultations: The patient had a full physical examination on review of systems carried out on May 16. These notes have been reviewed. Allergies: Coded Allergies: NO KNOWN ALLERGIES (09/04/12) Hospital Course/[place] Response: This 43-year-old male presented to the emergency room with depression and suicidal ideation in the context of alcohol, opiate and cocaine dependence. The patient was admitted on a voluntary basis and placed on 15 minute checks for safety. Withdrawal symptoms were measured using [employer] skills. Initially the patient seemed to tolerate withdrawal without medication. However on his second night he became disoriented with an elevated temperature. Blood pressure was high. He responded well to lorazepam and one-time dose of haloperidol. He was commenced on a full lorazepam detox protocol at that time consisting of Ativan supplemented with vitamins and folate. He tolerated the rest of his detox well. The patient did not have any symptoms of opiate withdrawal. The patient's mood was very depressed and anxious. Sleep, appetite, energy and concentration were poor. He felt hopeless about his future. He was commenced on Lexapro and hydroxyzine. He was educated on the side effects of both of these medications. He tolerated them well. The patient presented with a superficially bright affect. However he was easily tearful and admitted that he feels ashamed of his emotions. He feels guilty and vulnerable. He made progress during this admission and that he was able to participate in groups which is new for him. He was also able to recheck his family and was sure that they were all supportive. Over the course of his admission his symptoms improved. He was optimistic about his ability to get treatment for his symptoms, maintain sobriety and move forward with his life. He declined medication for relapse prevention. The patient is very anxious for discharge. Although his motivation is genuine his prognosis at this stage may be guarded as he somewhat minimizes the extent of his substance use. The patient also has significant ACOA issues that hopefully he can address in therapy. On the day of discharge the patient was euthymic with appropriate affect with full range. He was not suicidal or homicidal. He slept poorly the night before which he attributed to excitement about going home and seeing his dog. He intends to spend time with his family over the holiday weekend. There are no psychotic symptoms at any point during his admission. Discharge HBIPS - Tobacco Use Treatment Offered Post DC Medications Offered: Not Applicable Post DC Tobacco Treatment Plan: Not Applicable - EtOH/Drug Use D/O Treatment Offered Post DC Medications Offered: Ref Med EtOH/Drug Use D/O Post DC EtOH/SubAbuse [place] Plan: [facility] SubAbuse/Dual IOP Metabolic Screening - Screen if on a Neuroleptic Medication - Metabolic screening should include: - Blood Pressure, BMI, Glucose or Hgb A1c, & a - Lipid profile from within the past 365 days. Metabolic Screening () Not Applicable, patient not on a neuroleptic. OR () Patient on a neuroleptic(s) . Enter below results for Hemoglobin A1C, and lipid panel if obtained during the last 365 days. BMI: 29.800 Blood Pressure: 130/70 Laboratory Results From [facility] EHR (If applicable): Discharge Instructions General Discharge Information Multiple Neuroleptics: () Not Applicable OR Document below three failed attempts at monotherapy, or a plan to taper to monotherapy, or augmentation of Clozapine. () Discharge Diet Regular Discharge Activity As Tolerated DC Disposition: Collected from hospital by his mother and discharged home with follow-up as intensive outpatient. Referrals Ordered Referrals INTENSIVE OUTPT PSY-SUBSTANCE 05/23/18 [address] [id number] [facility]ensive Outpatient Program for mental health and substance use treatment 05/23/18 1:15pm [address] [id number] Prescriptions Start taking the following new medications: Atenolol (Atenolol) 25 MG TABLET 25 Milligram ORAL DAILY Qty = 30 No Refills Comments: Last Taken:05/19/18 Time:8AM Escitalopram Oxalate (Lexapro) 10 MG TABLET 10 Milligram ORAL DAILY @8 AM Qty = 14 No Refills Comments: Last Taken:05/19/18 Time:8AM Hydroxyzine Hydrochloride (Atarax) 50 MG TAB 50 Milligram ORAL EVERY 6 HOURS NEEDED as needed for ANXIETY/INSOMNIA Qty = 50 No Refills Comments: Last Taken:05/18/18 Time:7PM Folic Acid (Folic Acid) 1 MG TABLET 1 Milligram ORAL DAILY Qty = 30 No Refills Comments: Last Taken:05/19/18 Time:8AM Thiamine HCl (Vitamin B-1) 100 MG TABLET 100 Milligram ORAL DAILY Qty = 30 No Refills Comments: Last Taken:05/19/18 Time:8AM Lorazepam (Lorazepam) 0.5 MG TABLET 0.5 Milligram ORAL SEE INSTRUCTIONS Qty = 15 No Refills Instructions: TAKE TWO TABLETS FOUR TIMES A DAY FOR FOUR DOSES, THEN ONE TAB FOUR TIMES A DAY UNTIL GONE Comments: Last Taken:TO START TAPER AT HOME Time:RECEIVED ATIVAN 1MG AT 1125 05/19/18 Studies Pending at Discharge none Copies To: .
== END 2018-05-19 12:12 | DRG 754 ==
LOC: ERH 16:47 → CP SOUTH 05-15 10:34 → ERHI 05-15 10:34 → ENTRNSPT 05-15 19:32 → EDTRNSPT 05-15 19:34 → EDTRNSPTSTS 05-15 19:34 → CP SOUTH 05-15 19:40 → CMPTRNSPT 05-15 19:44 → CP SOUTH 05-16 10:35
PROVIDERS: Physician Assistant; Psychiatry & Neurology Psychiatry
DX: F32.9 Major depressive disorder, single episode, unspecified (principal); F10.20 Alcohol dependence, uncomplicated; F14.20 Cocaine dependence, uncomplicated; G89.29 Other chronic pain; M54.9 Dorsalgia, unspecified; Z87.891 Personal history of nicotine dependence
CPT/HCPCS: 36415; 80307; 82652; 84403; 93005; 93010; G0463; G0480; J3101; J3490